=== PATIENT | male | born 1945 | race Caucasian/White ===

== ENCOUNTER 2017-12-17 07:38 | Day surgery (SDC) ==
[2017-12-17] MEDS: TETRACAINE 0.5% UNIT-DOSE OP PRN ×2 (08:20→08:56)
[2017-12-17] MEDS: CYCLOGYL 2% OPTH OP PRN ×3 (08:20→08:30)
[2017-12-17] MEDS: BETADINE OPTH PREP OP PRN ×2 (08:20→08:56)
[2017-12-17] MEDS ORDERED: DEX-MOXI-KETOR OPTH INJ 1/0.5/0.4 MG/ML IO ONE (08:31)
[2017-12-17] MEDS ORDERED: BSS WITH EPINEPHRINE OP ONE (08:31)
[2017-12-17] MEDS ORDERED: LIDOCAINE 1%/PHENYLEPHRINE 1.5% BSS (SURGERY) INTRAOCULA ONE (08:31)
[2017-12-17] MEDS ORDERED: ZOFRAN 4 MG/2 ML IVP ONE (08:31)
[2017-12-17] MEDS ORDERED: BRIMONIDINE TARTRATE 0.2% OPTH SOL OP PRN (08:31)
[2017-12-17] MEDS ORDERED: LIDOCAINE 1% 20 ML MDV ID STA (08:31)
[2017-12-17] MEDS ORDERED: VERSED ONE (09:10)
[2017-12-17] MEDS ORDERED: SUBLIMAZE ONE (09:10)
[2017-12-19 15:04] VITALS: BP 122/67; TEMP 98.6
== END 2017-12-17 10:00 | disposition home or self-care (01) ==
LOC: SURG 07:38
PROVIDERS: ATTEND Ophthalmology
DX: H25.12 Age-related nuclear cataract, left eye (principal)

== ENCOUNTER 2018-01-06 09:14 | Day surgery (SDC) ==
[2018-01-06] MEDS: TETRACAINE 0.5% UNIT-DOSE OP PRN ×3 (10:06→10:55)
[2018-01-06] MEDS: BETADINE OPTH PREP OP PRN ×2 (10:06→10:35)
[2018-01-06] MEDS: CYCLOGYL 2% OPTH OP PRN ×3 (10:07→10:17)
[2018-01-06] MEDS ORDERED: ZOFRAN 4 MG/2 ML IVP ONE (10:16)
[2018-01-06] MEDS ORDERED: LIDOCAINE 1% 20 ML MDV ID STA (10:16)
[2018-01-06] MEDS ORDERED: BRIMONIDINE TARTRATE 0.2% OPTH SOL OP PRN (10:16)
[2018-01-06] MEDS ORDERED: SUBLIMAZE ONE (10:45)
[2018-01-06] MEDS ORDERED: VERSED ONE (10:45)
[2018-01-06] MEDS: BSS WITH EPINEPHRINE OP ONE ×2 (10:47→10:56)
[2018-01-06] MEDS: DEX-MOXI-KETOR OPTH INJ 1/0.5/0.4 MG/ML IO ONE ×2 (10:47→10:56)
[2018-01-06] MEDS: LIDOCAINE 1%/PHENYLEPHRINE 1.5% BSS (SURGERY) INTRAOCULA ONE ×2 (10:48→10:56)
[2018-01-08 11:34] VITALS: BP 128/56; TEMP 98.6
== END 2018-01-06 11:30 | disposition home or self-care (01) ==
LOC: SURG 09:14
PROVIDERS: ATTEND Ophthalmology
DX: H25.11 Age-related nuclear cataract, right eye (principal)